=== PATIENT | female | born 1980 | race Caucasian/White ===

== ENCOUNTER 2019-04-10 17:30 | Emergency (ER) | payer MEDICAID ==
[~2019-04-10] VITALS: Ht 157.5 cm; Wt 59.0 kg
[2019-04-10 17:37] VITALS: BP 119/79
--- NOTE | 2019-04-10 19:20 | NUR ---
CALLED PT IN LOBBY, NO RESPONSE, LWBS
--- NOTE | 2019-04-10 19:30 | NUR ---
NO ANSWER AT 1929, 1945. PATIENT LEFT WITHOUT BEING SEEN BY DR. RUBY. NO FURTHER CARE PROVIDED FOR PATIENT.
== END 2019-04-10 19:20 | disposition left against medical advice (07) ==
LOC: MED 17:30
DX: R42 Dizziness and giddiness (principal); Z53.21 Procedure and treatment not carried out due to patient leaving prior to being seen by health care provider
CPT/HCPCS: 82948

== ENCOUNTER 2019-04-10 21:08 | Emergency (ER) | payer MEDICAID ==
[~2019-04-10] VITALS: Ht 157.5 cm; Wt 54.4 kg
--- NOTE | 2019-04-10 21:15 | NUR ---
TO BED # 09 AMBULATORY
[2019-04-10 21:16] VITALS: BP 124/76
--- NOTE | 2019-04-10 21:27 | NUR ---
PT AMBULATED TO RESTROOM
--- NOTE | 2019-04-10 21:40 | NUR ---
PT C/O OF HIGH BLOOD SUGAR. WHEN PRESENTED TO ER EARLIER BLOOD SUGAR WAS 129, BEFORE BEING SEEN BY ERMD. PT CAME BACK TO ER AND BLOOD SUGAR IS NOW 89. PT C/O OF NOT FEELING WELL SINCE EARLIER TODAY. PT STATES " FEELING DIZZY/SWEATING AND ALMOST PASSED OUT" CURRENTLY PT DENIES DIZZINESS AND PAIN LEVEL 0/10. NO N/V/D. NO MEDICAL HX. SAFETY MEASURES IN PLACE. WAITING FOR ERMD TO EVALUATE PT.
[2019-04-10 21:46] LABS: APPEARANCE,URINE CLEAR (CLEAR); BILIRUBIN,URINE NEGATIVE (NEGATIVE); BLOOD, URINE 1+ (NEGATIVE); COLOR,URINE YELLOW (YELLOW); LEUKOCYTE ESTERASE ,URINE TRACE (NEGATIVE); NITRITE, URINE NEGATIVE (NEGATIVE); UGLUCOSE NEGATIVE (NEGATIVE)
[2019-04-10 21:50] LABS: WBC,URINE 0-5 /HPF (0-5)
--- NOTE | 2019-04-10 22:40 | NUR ---
PT RESTING IN BED WITH EYES OPEN. VSS. WILL CONTINUE TO MONITOR.
[2019-04-10 23:55] VITALS: BP 111/72
--- NOTE | 2019-04-10 23:55 | NUR ---
Patient discharged with v/s stable. Written and verbal after care instructions given and explained. Patient verbalized understanding. Ambulatory with steady gait. All questions addressed prior to discharge. Advised to follow up with PMD.
== END 2019-04-10 23:55 | disposition home or self-care (01) ==
LOC: MED 21:08
DX: R73.9 Hyperglycemia, unspecified (principal)
CPT/HCPCS: 81001; 81025; 99283